=== PATIENT | female | born 1980 | race Two or more races ===

== ENCOUNTER 2021-02-19 15:40 | Emergency (ER) | payer OTHER ==
[~2021-02-19] VITALS: Ht 162.6 cm; Wt 102.5 kg
[~2021-02-19 15:40] MED LIST: CYTOTEC200 MCG PO
[2021-02-19] MEDS ORDERED: ATABEX DHA 200200 MG (16:17)
[2021-02-19] MEDS ORDERED: SYNTHROID175 MCG (16:17)
[2021-02-19] MEDS ORDERED: ACETAMINOPHEN650 M2 PO ×2 (20:04→20:05)
== END 2021-02-19 20:22 | disposition home or self-care (01) ==
LOC: ER 15:40
DX: O26.891 Other specified pregnancy related conditions, first trimester (principal); R10.2 Pelvic and perineal pain; Z34.81 Encounter for supervision of other normal pregnancy, first trimester

== ENCOUNTER 2021-03-14 23:26 | Emergency (ER) | payer OTHER ==
[~2021-03-14] VITALS: Ht 162.6 cm; Wt 101.6 kg
[~2021-03-14 23:26] MED LIST changes: -CLARITIN10 M1; -SINGULAIR10 MG PO
[2021-03-15] MEDS ORDERED: SYNTHROID175 MCG (00:25)
[2021-03-15] MEDS ORDERED: ACETAMINOPHEN650 M2 PO (05:22)
== END 2021-03-15 06:18 | disposition home or self-care (01) ==
LOC: ER 23:26
DX: R10.2 Pelvic and perineal pain (principal)

== ENCOUNTER → 2021-03-14 | Outpatient (CLI) | payer OTHER ==
[~2021-03-14] MED LIST changes: +ACETAMINOPHEN650 M2 PO; +ATABEX DHA 200200 MG; +CLARITIN10 M1; +SINGULAIR10 MG PO; +SYNTHROID175 MCG
== END | disposition home or self-care (01) ==
LOC: PRENATAL 11:30
PROVIDERS: ATTEND Obstetrics & Gynecology Maternal & Fetal Medicine
DX: Z36.89 Encounter for other specified antenatal screening (principal); O36.80X1 Pregnancy with inconclusive fetal viability, fetus 1; O09.511 Supervision of elderly primigravida, first trimester; Z3A.14 14 weeks gestation of pregnancy

== ENCOUNTER 2021-04-07 10:12 | Emergency (ER) | payer OTHER ==
[~2021-04-07] VITALS: Ht 162.6 cm; Wt 107.5 kg
[2021-04-07] MEDS ORDERED: ATABEX DHA 200200 MG (10:49)
[2021-04-07] MEDS ORDERED: CLARITIN10 M1 (10:50)
[2021-04-07] MEDS ORDERED: SINGULAIR10 MG PO (10:50)
== END 2021-04-07 16:17 | disposition home or self-care (01) ==
LOC: ER 10:12
DX: N93.9 Abnormal uterine and vaginal bleeding, unspecified (principal); Z3A.11 11 weeks gestation of pregnancy

== ENCOUNTER 2021-05-06 09:30 | Outpatient (CLI) | payer OTHER ==
[~2021-05-06 09:30] MED LIST changes: +CLARITIN10 M1; +SINGULAIR10 MG PO
== END 2021-05-06 11:21 | disposition home or self-care (01) ==
LOC: PRENATAL 09:30
PROVIDERS: ATTEND Obstetrics & Gynecology Maternal & Fetal Medicine
DX: O35.0XX1 Maternal care for (suspected) central nervous system malformation in fetus, fetus 1 (principal); O35.3XX1 Maternal care for (suspected) damage to fetus from viral disease in mother, fetus 1; O98.512 Other viral diseases complicating pregnancy, second trimester; O35.1XX1 Maternal care for (suspected) chromosomal abnormality in fetus, fetus 1; O09.512 Supervision of elderly primigravida, second trimester; Z36.89 Encounter for other specified antenatal screening; Z3A.22 22 weeks gestation of pregnancy

== ENCOUNTER 2021-05-15 00:41 | Outpatient (CLI) | payer OTHER ==
[2021-05-15] MEDS ORDERED: PRENATAL TABLE1 EAC1 PO (00:49)
== END 2021-05-15 10:35 | disposition home or self-care (01) ==
LOC: OBS/DEL 00:41
PROVIDERS: ATTEND Obstetrics & Gynecology
DX: O26.892 Other specified pregnancy related conditions, second trimester (principal); R10.2 Pelvic and perineal pain; Z3A.22 22 weeks gestation of pregnancy

== ENCOUNTER 2021-06-25 14:06 | Emergency (ER) | payer OTHER ==
[~2021-06-25] VITALS: Ht 162.6 cm; Wt 117.9 kg
[~2021-06-25 14:06] MED LIST changes: +PRENATAL TABLE1 EAC1 PO
== END 2021-06-25 17:29 | disposition home or self-care (01) ==
LOC: ER 14:06
DX: R60.0 Localized edema (principal)

== ENCOUNTER 2021-06-27 07:46 | Outpatient (CLI) | payer OTHER ==
[2021-07-06] MEDS ORDERED: KEFLEX750 MG PO (17:18)
== END 2021-06-27 07:47 | disposition home or self-care (01) ==
LOC: NUCLEAR 07:46
PROVIDERS: ATTEND General Practice
DX: R22.33 Localized swelling, mass and lump, upper limb, bilateral (principal); M79.602 Pain in left arm; M79.601 Pain in right arm

== ENCOUNTER 2021-07-05 10:30 | Outpatient (CLI) | payer OTHER ==
[2021-07-06] MEDS ORDERED: KEFLEX750 MG PO ×2 (17:18)
== END 2021-07-06 18:21 | disposition home or self-care (01) ==
LOC: OBS/DEL 10:30
PROVIDERS: ATTEND Obstetrics & Gynecology
DX: O23.42 Unspecified infection of urinary tract in pregnancy, second trimester (principal); Z3A.32 32 weeks gestation of pregnancy

== ENCOUNTER 2021-07-13 15:40 | Outpatient (CLI) | payer OTHER ==
[~2021-07-13 15:40] MED LIST changes: +KEFLEX750 MG PO
[2021-07-13] MEDS ORDERED: BENADRYL25 MG PO (15:57)
== END 2021-07-14 16:43 | disposition home or self-care (01) ==
LOC: OBS/DEL 15:40 → PRENATAL 07-28 15:30
PROVIDERS: ATTEND Obstetrics & Gynecology
DX: O26.893 Other specified pregnancy related conditions, third trimester (principal); R10.2 Pelvic and perineal pain; Z3A.31 31 weeks gestation of pregnancy

== ENCOUNTER 2021-07-28 15:07 | Outpatient (CLI) | payer OTHER ==
[~2021-07-28 15:07] MED LIST changes: +BENADRYL25 MG PO
== END 2021-07-28 16:07 | disposition home or self-care (01) ==
LOC: PRENATAL 15:07
PROVIDERS: ATTEND Obstetrics & Gynecology Maternal & Fetal Medicine
DX: O26.843 Uterine size-date discrepancy, third trimester (principal); O36.8131 Decreased fetal movements, third trimester, fetus 1; O99.213 Obesity complicating pregnancy, third trimester; Z36.89 Encounter for other specified antenatal screening; Z3A.35 35 weeks gestation of pregnancy

== ENCOUNTER 2021-08-20 11:11 | Outpatient (CLI) | payer OTHER | END 2021-08-20 15:30 | disposition home or self-care (01) | LOC: OBS/DEL 11:11 | PROVIDERS: ATTEND Obstetrics & Gynecology | DX: O26.843 Uterine size-date discrepancy, third trimester (principal); O36.8130 Decreased fetal movements, third trimester, not applicable or unspecified; Z3A.36 36 weeks gestation of pregnancy ==

== ENCOUNTER 2021-08-29 01:21 | Inpatient (IN) | payer OTHER ==
[~2021-08-29] VITALS: Ht 162.6 cm; Wt 3.2 kg
== END 2021-09-01 13:52 | disposition home or self-care (01) | DRG 787 ==
LOC: OBS/DEL 01:21 → LDR 09:08 → OB/GYN 09:08 → O/R 09:08 → OB/GYN 14:44
PROVIDERS: ADMIT Obstetrics & Gynecology; ATTEND Obstetrics & Gynecology
PROC: 4A1HXFZ Monitoring of Products of Conception, Cardiac Rhythm, External Approach (ICD-10-PCS; 2021-08-29)
PROC: 10D00Z1 Extraction of Products of Conception, Low, Open Approach (ICD-10-PCS; principal; 2021-08-29 09:15)
DX: O99.892 Other specified diseases and conditions complicating childbirth (principal); N82.3 Fistula of vagina to large intestine; O82 Encounter for cesarean delivery without indication; O42.02 Full-term premature rupture of membranes, onset of labor within 24 hours of rupture; Z3A.38 38 weeks gestation of pregnancy; Z37.0 Single live birth